=== PATIENT | female | born 1995 | race Caucasian/White ===

== ENCOUNTER → 2024-06-08 17:01 | Outpatient (REF) | payer BC, SELFPAY | LOC: PNTC 17:01 | PROVIDERS: ATTENDING PHYSICIAN Obstetrics & Gynecology | DX: Z36.0 Encounter for antenatal screening for chromosomal anomalies (principal); Z36.82 Encounter for antenatal screening for nuchal translucency | CPT/HCPCS: 76815 ==

== ENCOUNTER → 2024-07-06 10:26 | Outpatient (REF) | payer BC, SELFPAY | LOC: PNTC 10:26 | PROVIDERS: ATTENDING PHYSICIAN Obstetrics & Gynecology | DX: O31.21X1 Continuing pregnancy after intrauterine death of one fetus or more, first trimester, fetus 1 (principal) | CPT/HCPCS: 76805 ==

== ENCOUNTER → 2024-07-29 16:55 | Outpatient (REF) | payer BC, SELFPAY | LOC: PNTC 16:55 | PROVIDERS: ATTENDING PHYSICIAN Obstetrics & Gynecology | DX: O14.90 Unspecified pre-eclampsia, unspecified trimester (principal); O31.21X1 Continuing pregnancy after intrauterine death of one fetus or more, first trimester, fetus 1 | CPT/HCPCS: 76811 ==

== ENCOUNTER → 2024-10-26 08:07 | Outpatient (REF) | payer BC, SELFPAY | LOC: PNTC 08:07 | PROVIDERS: ATTENDING PHYSICIAN Obstetrics & Gynecology | DX: O31.20X0 Continuing pregnancy after intrauterine death of one fetus or more, unspecified trimester, not applicable or unspecified (principal); Z87.59 Personal history of other complications of pregnancy, childbirth and the puerperium | CPT/HCPCS: 59025; 76816 ==

== ENCOUNTER 2024-12-12 19:48 | Inpatient (IN) | payer BC, SELFPAY ==
[2024-12-12 20:05] VITALS: BMI 30.1
[2024-12-12 20:20] VITALS: BP 127/81
[2024-12-12] MEDS: LR 1000 IV (23:40)
[2024-12-12] MEDS: STADOL 1 MG IV (23:59)
[2024-12-13] LABS: % Basophils 0.4 % (0-2); % Eosinophils 0.4 % (0-6); % Immature Granulocytes 0.7 % (0-0.5); % Lymphocytes 22.5 % (20.5-51.1); % Monocytes 5.3 % (1.7-9.3); % Neutrophils 70.7 % (42.2-75.2); Absolute Basophils 0.1 10^3/uL (0-0.2); Absolute Eosinophils 0.1 10^3/uL (0-0.7); Absolute Immature Granulocytes 0.1 10^3/uL (0-0.05); Absolute Lymphocytes 2.6 10^3/uL (1.2-3.4); Absolute Monocytes 0.6 10^3/uL (0.1-0.6); Absolute Neutrophils 8.3 10^3/uL (1.4-6.5); Hematocrit 38.3 % (37.0-47.0); Hemoglobin 13.8 g/dL (12.0-16.0); Mean Corpuscular Hgb 31.7 pg (27.0-31.0); Mean Corpuscular Volume 87.8 fL (81.0-99.0); Mean Platelet Volume 10.3 fL (7.4-10.4); Nucleated Red Blood Cells % 0 %; Platelet Count 178 10^3/uL (130-400); Red Blood Cell Count 4.36 10^6/uL (4.20-5.40); Red Cell Dist. Width 12.1 % (11.5-14.5); White Blood Cell Count 11.7 10^3/uL (4.8-10.8)
[2024-12-13] MEDS: LR 1000 IV (01:21)
[2024-12-13] MEDS: FENTANYL/BUPIVACAINE 100 EPIDURAL (01:42)
[2024-12-13] MEDS: SUBLIMAZE 100 MCG EPIDURAL (01:42)
[2024-12-13] MEDS: SENOKOT-S 1 TABLET PO (20:28)
[2024-12-13] MEDS: MOTRIN 600 MG PO (20:28)
[2024-12-13] MEDS: PRENATAL PLUS 1 TABLET PO (22:00)
[2024-12-14] MEDS: MOTRIN 600 MG PO ×4 (02:48→21:30)
[2024-12-14 05:17] LABS: Hematocrit 30.8 % (37.0-47.0); Hemoglobin 10.5 g/dL (12.0-16.0)
[2024-12-14] MEDS: PRENATAL PLUS PO ×2 (08:43→22:00)
[2024-12-14] MEDS: SENOKOT-S 1 TABLET PO (21:30)
[2024-12-15] MEDS: MOTRIN 600 MG PO (05:22)
[2024-12-15 14:14] LABS: Syphilis/T. pallidum Ab Reflex Negative (Negative)
== END 2024-12-15 10:55 | disposition home or self-care (01) | DRG 807 ==
LOC: LDRP 19:48
PROVIDERS: ADMITTING PHYSICIAN Obstetrics & Gynecology; REFERRING PHYSICIAN Student in an Organized Health Care Education/Training Program
PROC: 0KQM0ZZ Repair Perineum Muscle, Open Approach (ICD-10-PCS; 2024-12-13)
PROC: 10907ZC Drainage of Amniotic Fluid, Therapeutic from Products of Conception, Via Natural or Artificial Opening (ICD-10-PCS; 2024-12-13)
PROC: 10E0XZZ Delivery of Products of Conception, External Approach (ICD-10-PCS; 2024-12-13)
DX: O77.0 Labor and delivery complicated by meconium in amniotic fluid (principal); Z37.0 Single live birth; Z3A.39 39 weeks gestation of pregnancy; O70.1 Second degree perineal laceration during delivery; O34.211 Maternal care for low transverse scar from previous cesarean delivery
CPT/HCPCS: 36415; 85014; 85018; 85025; 86780; 86850; 86900; 86901